=== PATIENT | female | born 2005 | race Caucasian/White ===

== ENCOUNTER 2024-11-17 12:02 | Outpatient (CLI) | payer OTHER, SELFPAY ==
--- NOTE | ~2024-11-17 | CT_ITS ---
EXAMINATION: CT abdomen pelvis w con DATE: 11/17/2024 12:37 INDICATION: Right lower quadrant pain TECHNIQUE: Computed tomography (CT) of the abdomen and pelvis was performed with 100 cc Omnipaque 350 intravenous contrast. The dose-length product was 360.96 mGy-cm. Automated exposure control and iterative reconstruction technique were employed. COMPARISON: None. FINDINGS: Lung bases unremarkable. Heart size normal. No significant pleural or pericardial effusion. The liver, spleen, pancreas, adrenal glands and kidneys are unremarkable. Gallbladder is present. Pr esent. Nonobstructive bowel gas pattern. No significant vascular abnormality. No lymphadenopathy. Susie endix is unremarkable. No evidence for appendicitis. Mild levocurvature of the lumbar spine. IMPRESSION: 1. No acute abdominal abnormality. Reviewed, dictated and finalized at location A.
--- OUTSIDE RECORDS SUMMARY | 2024-11-17 12:07 | XMS_ITS | Clinical Summary ---
Author Organization [facility] Address [address] [place] [address] Care Team Providers Care Queen'S Counsel Name Role Phone Lissy Suggs MD Primary Care Provider [phone] Source Comments [facility],non-owned Affiliates and Associated Physician Practices is amultiple site organization consisting of ambulatory clinics and hospital sitesin [place], [place], [place] and [place]. This disclosure is being madepursuant to the Care Everywhere program and may not contain all information available regarding this patient. Last updated 18.[facility] Allergies Active Allergy Reactions Criticality Noted Date Comments Loratadine Itching 01/19/2010 Cefdinir Other 08/24/2018 Red man Medications * Be aware that medications may not be up to date on this document. Alwaysverify current medications with the patient. ibuprofen (MOTRIN) 200 MG tablet Take 400 mg by mouth every 6 hours as needed for Pain Active SUMAtriptan (IMITREX) 5 MG/ACT nasal sprayIndications :Migraine without aura and without status migrainosus, not intractable 1 spray to nostril at onset of headache. May repeat in alternate nostril 2-4 hours later. Max dose 2/24 hours. Max dose 4 doses per week. 1 Each 2 0 Active melatonin 10 MG capsule Take 10 mg by mouth at bedtime Active riboflavin 400 MG capsule Take 1 capsule by mouth once daily 100 capsule 6 0 Active topiramate (TOPAMAX) 25 MG tablet Take 1 (one) tablet by mouth at bedtime 30 tablet 2 1 Active Active Problems Problem Noted Date Diagnosed Date Chronic daily headache 08/16/2019 Assessment & Plan (08/16/2019 4:01 PM CDT): Though prior headaches were mostly migraines, recent milder to moderate headaches are tension type and related to lifestyle such as diet, excess caffeine intake, sleep disturbances, mood fluctuations, schooling related stressors, medication overuse etc. 1. Keep headache diary 2. Maintain active lifestyle - encourage regular physical activity as is presently doing. 3. Eat healthy diet, and do not skip meals. Eat on a regular schedule. 4. Drink plenty of water, and avoid caffeine regularly. Reduce caffeine intake. 5. Limit screen time if possible. Can take short breaks when doing online schooling but encourage completion of school requirements 6. Sleep: 1. Maintain good sleep routine. 2. Avoid distractions at bedtime such as TV, computer. No electronics by the bedside and turn off all electronics at least 30 minutes prior to going to bed. 3. Get at least 8-10 hours of sleep nightly 4. Avoid daytime naps 5. Restart iron supplementation as recommended by Sleep clinic in the past 6. Start melatonin 1-3 mg about 30 minutes prior to going to bed. 7. Do not use pain medication (such as Tylenol, Ibuprofen, Excedrin, Aleve) more than 2-3 times/week in order to avoid medication overuse headaches 8. Use Imitrex nasal spray for the intense migraines as in the past. 9. Continue seeing the therapist to address mood fluctuations, anxiety and coping. 10. Call in 4-6 weeks with update regarding headaches, sooner for concerns. If headaches are persistent/increase despite improving lifestyle, could consider a trial of preventative medication such as Topamax. Migraine without aura and wi thout status migrainosus, not intractable 08/22/2017 Overview (08/22/2017): Migraine headaches (left sided or diffuse, throbbing, moderate intensity associated with light and sound sensitivity worsening on movement, lasting for whole day and impairing her functioning) since age 4 yrs that increased in frequency since 2016 to 2-4 headaches per month. Her neurological exam is normal and non focal ruling out any serious underlying etiology. Only concerning part is that some of her headaches start in the middle of night and wake her up. Plan- Use imitrex 5 mg nasal spray (one spray in each nose) prn for migraine headaches. Has failed rizatriptan and cannot take oral tablets She can use naproxen prn for her migraine headaches along with the nasal spray Discussed prophylactic medications but family wants to think and will call. Has tried topiramate and did not like it. Will use nortriptyline Discussed healthy lifestyle to prevent migraines- encouraged exercise Chronic otitis media with effusion 01/19/2010 Family History Medical History Relation Name Comments Migraine Father only during chi ldhood Migraine Mother Migraine Paternal Grandmother Relation Name Status Comments Father Mother Paternal Grandmother Social History Tobacco Use Types Packs/Day Years Used Date Smoking Tobacco: Never Comments Unknown Sex and Gender Information Value Date Recorded Sex Assigned at Not on file Legal Sex Female [address] Gender Identity Not on file Sexual Orientation Not on file Last Filed Vital Signs Vital Sign Reading Time Taken Comments Blood Pressure 100/70 08/24/2018 1:12 PM CDT Pulse - - Temperature - - Respiratory Rate - - Oxygen Saturation - - Inhaled Oxygen Concentration - - Weight 61.2 kg (135 lb) 02/07/2020 10:23 AM CDT Height 160.2 cm (5' 3.07) 08/24/2018 1:12 PM CD T Body Mass Index - - Plan of Treatment Health Maintenance Due Date Last Done Comments HIV SCREENING 11/10/2018 HPV VACCINE (1 - 3-dose series) 11/10/2018 CHLAMYDIA/GONORRHEA SCREENING 2019 MENINGOCOCCAL (Group B) VACC INE SHARED DECISION-MAKING (1 of 2 - Standard) 2019 HEPATITIS C SCREENING 11/06/2021 DTAP/TDAP/TD VACCINES (1 - Tdap) 11/10/2022 HEPATITIS B VACCINE (1 of 3 - 19+ 3-dose series) 11/10/2022 COVID-19 VACCINE ( - 2023-2 5 season) 2023 DEPRESSION SCREENING 04/28/2024 INFLUENZA VACCINE (#1) 2024 ZOSTER VACCINE (1 of 2) 11/10/2053 HIB VACCINE Aged Out No longer eligi ble based on patient's age to complete this topic MENINGOCOCCAL GROUPS A/C/Y/W VACCINE Aged Out No longer eligible b ased on patient's age to complete this topic PNEUMOCOCCAL VACCINE Aged Out No long er eligible based on patient's age to complete this topic Insurance CIGNA CIGNA Care Teams Queen'S Counsel Relationship Specialty Start Date End Date Lissy Suggs MD [address] [place] [address] PCP - General 01/19/10
[2024-11-17 13:48] LABS: Hematocrit 39.4 % (37.0-47.0); Hemoglobin 12.8 g/dL (12.0-15.0); Immature Granulocyte Percent A 0.3 % (0-0.5); Lymphocytes Absolute Auto 1.75 K/mm3 (0.9-3.2); Mean Corpuscular HGB Conc 32.5 g/dl (32-36); Mean Corpuscular Hemoglobin 30.1 pg (26-34); Mean Corpuscular Volume 92.7 fl (80-100); Nucleated Red Blood Cells Absolute Auto 0.000 K/mm3 (0.0-0.012); Nucleated Red Blood Cells Perc 0.0 % (0.0-0.2); Platelet Count Result 303 k/mm3 (150-375); Red Blood Count 4.25 M/mm3 (4.2-5.4); White Blood Count 7.9 K/mm3 (4.5-10.0)
[2024-11-17 14:03] LABS: SPREG INTERNAL CONTROL Positive; Serum Qual hCG Negative
[2024-11-17 14:07] LABS: Alanine Aminotransferase 15 U/L (6-35); Albumin Level 4.3 g/dL (3.5-5.1); Alkaline Phosphatase 55 U/L (38-126); Anion Gap 7 mmol/L (4-12); Aspartate Amino Transferase 21 U/L (14-36); Bilirubin,Total 0.3 mg/dL (0.2-1.3); Blood Urea Nitrogen 12 mg/dL (7-17); Calcium 9.2 mg/dL (8.4-10.2); Carbon Dioxide 24 mmol/L (22-30); Chloride 101 mmol/L (98-107); Estimated Glomerular Filt Rate > 60; Glucose 84 mg/dL (65-110); Potassium 4.3 mmol/L (3.4-5.0); Sodium 132 mmol/L (137-145); Total Protein 7.2 g/dL (6.3-8.2)
== END 2024-11-17 12:03 | disposition home or self-care (01) ==
PROVIDERS: PCP Family Medicine; Visit Provider Family Medicine
DX: R10.31 Right lower quadrant pain (principal)
CPT/HCPCS: 36415; 74177; 80053; 84703; 85025; Q9967

== ENCOUNTER 2024-11-22 13:18 | Outpatient (CLI) | payer OTHER, SELFPAY ==
--- NOTE | ~2024-11-22 | US_ITS ---
EXAMINATION: US pelvic complete INDICATION: Pelvic pain Comparison:No prior studies for comparison. TECHNIQUE: Multiple transabdominal and endovaginal sonographic images of the pelvis performed. FINDINGS: The uterus measures 6.7 x 3.6 x 5.1 cm. The endometrial complex measures 6 mm. The right ovary measures 2.6 x 2.3 x 2.4 cm and the left ovary measures 2.6 x 1.9 x 2 cm. There are small follicles in each ovary. Normal doppler signal in both ovaries. There is no free fluid in the pelvis. There are no abnormal masses seen on either side. IMPRESSION: 1. Unremarkable pelvic ultrasound. Reviewed, dictated and finalized at location A.
== END 2024-11-22 13:19 | disposition home or self-care (01) ==
LOC: MICIMG 13:18
PROVIDERS: PCP Family Medicine; Visit Provider Family Medicine
DX: R10.2 Pelvic and perineal pain (principal)
CPT/HCPCS: 76856

== ENCOUNTER 2024-12-31 13:17 | Emergency (ER) | payer OTHER, SELFPAY ==
--- NOTE | ~2024-12-31 | CT_ITS ---
EXAMINATION: CT abdomen pelvis w con DATE: 12/31/2024 17:14 INDICATION: Lower abdomen pain TECHNIQUE: Computed tomography (CT) of the abdomen and pelvis was performed with 100 cc Omnipaque 350 intravenous contrast. The dose-length product was 267.36 mGy-cm. Automated exposure control and iterative reconstruction technique were employed. COMPARISON: CT dated 11/17/2024. FINDINGS: Lung bases unremarkable. The liver, spleen, pancreas, adrenal glands and kidneys are unremarkable. Gallbladder is present. No significant vascular abnormality. No lymphadenopathy. Colonic diverticulosis without evidence for diverticulitis. There is a 2.8 cm right ovarian cyst. There are follicular changes in the left ovary. There is free fluid in the pelvic cul-de-sac. No acute osseous abnormality. IMPRESSION: 1. Right ovarian cyst measuring 2.8 cm. Free fluid in the pelvic cul-de-sac, likely physiologic. Reviewed, dictated and finalized at location O. IMPRESSION: 1. Right ovarian cyst measuring 2.8 cm. Free fluid in the pelvic cul-de-sac, cathi green physiologic.
--- NOTE | ~2024-12-31 | US_ITS ---
EXAMINATION: US pelvic complete INDICATION: Ovarian cyst Comparison:11/22/2024 TECHNIQUE: Multiple transabdominal sonographic images of the pelvis performed. FINDINGS: The uterus measures 7.1 x 3.4 x 4.7 cm. The endometrial complex measures 12 mm. The right ovary measures 3.4 x 2.3 x 2.1 cm and the left ovary measures 3.9 x 2.8 x 4.2 cm. There are small follicles in each ovary. Normal doppler signal in both ovaries. There is no free fluid in the pelvis. There are no abnormal masses seen on either side. IMPRESSION: 1. Mild endometrial thickening. Reviewed, dictated and finalized at location O.
[2024-12-31 13:20] VITALS: BP 119/78; PULSE 98; RESP 20; TEMP 36.8; O2SAT 98
[2024-12-31 14:48] VITALS: BP 123/82; PULSE 79; RESP 15; O2SAT 99
[2024-12-31 14:50] LABS: BEDSIDEPREGUCG Negative (Negative)
[2024-12-31 15:02] LABS: Hematocrit 44.0 % (37.0-47.0); Hemoglobin 14.7 g/dL (12.0-15.0); Immature Granulocyte Percent A 0.3 % (0-0.5); Lymphocytes Absolute Auto 1.95 K/mm3 (0.9-3.2); Mean Corpuscular HGB Conc 33.4 g/dl (32-36); Mean Corpuscular Hemoglobin 30.6 pg (26-34); Mean Corpuscular Volume 91.7 fl (80-100); Nucleated Red Blood Cells Absolute Auto 0.000 K/mm3 (0.0-0.012); Nucleated Red Blood Cells Perc 0.0 % (0.0-0.2); Platelet Count Result 317 k/mm3 (150-375); Red Blood Count 4.80 M/mm3 (4.2-5.4); White Blood Count 9.8 K/mm3 (4.5-10.0)
[2024-12-31 15:14] LABS: Add Urine Microscopic? YES; Glucose Urine UA Negative (Negative); Leukocyte Esterase Ur Negative LEU/UL (Negative); Need Manual Microscopic Reviewed; Nitrate Urine Negative (Negative); Non Pathogenic Casts 0-2; Specific Grav Ur 1.023 (1.001-1.035)
[2024-12-31 15:16] LABS: Alanine Aminotransferase 15 U/L (6-35); Albumin Level 4.7 g/dL (3.5-5.1); Alkaline Phosphatase 57 U/L (38-126); Anion Gap 7 mmol/L (4-12); Appearance Urine Sl Cloudy (Clear); Aspartate Amino Transferase 21 U/L (14-36); Bilirubin,Total 0.5 mg/dL (0.2-1.3); Blood Urea Nitrogen 6 mg/dL (7-17); Calcium 9.4 mg/dL (8.4-10.2); Carbon Dioxide 26 mmol/L (22-30); Chloride 104 mmol/L (98-107); Estimated CRCL calculation 100 ml/min; Estimated Glomerular Filt Rate > 60; Glucose 93 mg/dL (65-110); Lipase 80 U/L (23-300); Potassium 4.2 mmol/L (3.4-5.0); Sodium 137 mmol/L (137-145); Total Protein 7.7 g/dL (6.3-8.2)
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
[2024-12-31 17:17] VITALS: BP 101/69; PULSE 83; RESP 16; O2SAT 100
[2024-12-31 18:25] VITALS: BP 108/73; PULSE 78; RESP 16; O2SAT 100
[2024-12-31 19:18] VITALS: BP 109/71; PULSE 96; RESP 16; O2SAT 97
== END 2024-12-31 19:17 | disposition home or self-care (01) ==
PROVIDERS: Student in an Organized Health Care Education/Training Program; PCP Family Medicine
DX: K92.1 Melena (principal); R10.30 Lower abdominal pain, unspecified; F41.9 Anxiety disorder, unspecified; F64.0 Transsexualism; Z79.899 Other long term (current) drug therapy; R93.89 Abnormal findings on diagnostic imaging of other specified body structures
CPT/HCPCS: 36415; 74177; 76856; 80053; 81001; 81025; 83690; 85025; 87086; 99284; Q9967